=== PATIENT | male | born 2000 | race American Indian/Alaskan Native ===

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

== ENCOUNTER 2020-05-11 04:32 | Emergency (ER) | payer OTHER ==
[2020-05-11] MEDS ORDERED: dexAMETHasone 20 MG/5 ML VIAL IV ONE (04:53)
--- NOTE | 2020-05-11 05:00 | Emergency Department Report ---
ED General Adult HPI - General Stated complaint: POSSIBLE STREP Time Seen by Provider: 05/11/20 04:53 Source: patient, RN notes reviewed Limitations: No Limitations - History of Present Illness Initial comments: Patient is a 19-year-old -Stateless male who presents with throat pain x2 weeks. States he was treated with penicillin shot 1 week ago with no improvement of symptoms. Patient is tolerating liquids with some pain. There is no ear pain. Pain is described as 5/10 burning with swallowing. There is no stridor or wheezing. Patient has not seen ENT. - Related Data Previous Rx's Medication Instructions Recorded Last Taken Type Clindamycin [Clindamycin CAP] 300 mg PO Q6H 7 Days #28 capsule 05/11/20 Unknown Rx Dexamethasone [Decadron] 6 mg PO BID 2 Days #4 tablet 05/11/20 Unknown Rx Ibuprofen [Motrin 800 MG tab] 800 mg PO Q8HR PRN #30 tablet 05/11/20 Unknown Rx Nystas/Diphen/Xyl Visc/Mylanta 15 ml PO QID 5 Days #240 ml 05/11/20 Unknown Rx [Magic Mouthwash] Allergies Allergy/AdvReac Type Severity Reaction Status Date / Time No Known Allergies Allergy Unverified 02/05/19 15:34 ED Review of Systems ROS: Stated complaint: POSSIBLE STREP Other details as noted in HPI Constitutional: chills, fever, malaise Eyes: denies: eye pain, eye discharge, vision change ENT: throat pain, congestion Respiratory: denies: cough, shortness of breath, wheezing Cardiovascular: denies: chest pain, palpitations Endocrine: no symptoms reported Gastrointestinal: denies: abdominal pain, nausea, vomiting, diarrhea Genitourinary: denies: urgency, dysuria Musculoskeletal: denies: back pain, joint swelling, arthralgia Skin: denies: rash, lesions Neurological: denies: headache, weakness, paresthesias Psychiatric: denies: anxiety, depression Hematological/Lymphatic: denies: easy bleeding, easy bruising ED Past Medical Hx - Social History Smoking Status: Never Smoker Substance Use Type: Alcohol, Marijuana - Medications Home Medications: Home Medications Medication Instructions Recorded Confirmed Last Taken Type Clindamycin [Clindamycin CAP] 300 mg PO Q6H 7 Days #28 capsule 05/11/20 Unknown Rx Dexamethasone [Decadron] 6 mg PO BID 2 Days #4 tablet 05/11/20 Unknown Rx Ibuprofen [Motrin 800 MG tab] 800 mg PO Q8HR PRN #30 tablet 05/11/20 Unknown Rx Nystas/Diphen/Xyl Visc/Mylanta 15 ml PO QID 5 Days #240 ml 05/11/20 Unknown Rx [Magic Mouthwash] ED Physical Exam - General General appearance: alert, in no apparent distress - Head Head exam: Present: atraumatic, normocephalic - Eye Eye exam: Present: normal appearance, EOMI Pupils: Present: normal accommodation - ENT ENT exam: Present: mucous membranes moist, TM's normal bilaterally, normal external ear exam - Expanded ENT Exam Expanded Throat exam: Positive: tonsillar erythema, tonsillomegaly, tonsillar exudate. Negative: R peritonsillar mass, L peritonsillar mass - Neck Neck exam: Present: normal inspection - Respiratory Respiratory exam: Present: normal lung sounds bilaterally. Absent: respiratory distress, wheezes, rales, rhonchi, stridor, chest wall tenderness - Cardiovascular Cardiovascular Exam: Present: regular rate, normal rhythm, normal heart sounds. Absent: systolic murmur, diastolic murmur, rubs, gallop - GI/Abdominal GI/Abdominal exam: Present: soft, normal bowel sounds. Absent: distended, tenderness - Rectal Rectal exam: Present: deferred - Extremities Exam Extremities exam: Present: normal inspection, full ROM. Absent: tenderness - Back Exam Back exam: Present: normal inspection - Neurological Exam Neurological exam: Present: alert, oriented X3, CN II-XII intact, normal gait - Psychiatric Psychiatric exam: Present: normal affect, normal mood - Skin Skin exam: Present: warm, dry, intact, normal color. Absent: rash ED Course Vital Signs 05/11/20 04:48 Temperature 100.9 F H Pulse Rate 91 H Respiratory 18 Rate Blood Pressure 132/72 O2 Sat by Pulse 97 Oximetry ED Medical Decision Making - Medical Decision Making Symptoms are improved, plan dc to home with rx : Abx, decadron, ibuprofen, magic mouth wash gargle and spit. Critical care attestation.: If time is entered above; I have spent that time in minutes in the direct care of this critically ill patient, excluding procedure time. ED Disposition Clinical Impression: Pharyngitis Qualifiers: Pharyngitis/tonsillitis etiology: streptococcus Qualified Code(s): J02.0 - Streptococcal pharyngitis Disposition: TO HOME OR SELFCARE Is pt being admited?: No Does the pt Need Aspirin: No Condition: Stable Instructions: Pharyngitis, [id number] Prescriptions: Clindamycin [Clindamycin CAP] 300 mg PO Q6H 7 Days #28 capsule Dexamethasone [Decadron] 6 mg PO BID 2 Days #4 tablet Nystas/Diphen/Xyl Visc/Mylanta [Magic Mouthwash] 15 ml PO QID 5 Days #240 ml Ibuprofen [Motrin 800 MG tab] 800 mg PO Q8HR PRN #30 tablet PRN Reason: pain Referrals: RONNIE GOFF MD [Referring] - 3-5 Days Forms: Work/School Release Form(ED) Time of Disposition: 05:37
[2020-05-11 06:01] VITALS: BP 122/78
== END 2020-05-11 06:02 | disposition home or self-care (01) ==
LOC: ED 04:32
DX: J02.9 Acute pharyngitis, unspecified (principal); F12.10 Cannabis abuse, uncomplicated; Z79.899 Other long term (current) drug therapy
CPT/HCPCS: 96365; 96375; 99282; J1100